=== PATIENT | female | born 1990 | race Caucasian/White ===

== ENCOUNTER 2018-11-22 18:13 | Emergency (ER) | payer BC ==
[2018-11-22 18:26] VITALS: TEMP 98.2
[2018-11-22] MEDS ORDERED: SODIUM CHLORIDE 0.9% 1,000 ML IV STA (18:28)
[2018-11-22 19:06] LABS: Appearance,Urine Clear (Clear); Bilirubin,Urine Negative (Negative); Blood,Urine Negative (Negative); Color,Urine Light Yellow; Glucose,Urine (UA) Negative (Negative); Ketones,Urine Negative (Negative); Leukocyte Esterase,Urine Negative (Negative); Nitrite,Urine Negative (Negative); PH, Urine 6.5 (5.0-8.0); Protein,Urine Negative (Negative); Specific Gravity,Urine 1.005 (1.001-1.035); Urobilinogen,Urine <2.0 mg/dL (<2.0)
[2018-11-22] MEDS ORDERED: MAG HYDROX/AL HYDROX/SIMETH 30 ML, HYOSCYAMINE ELIXIR 10 ML, CIMETIDINE HCL 300 MG, LID... PO STA ×4 (19:12)
[2018-11-22 19:14] LABS: Basophils # (A) 0.1 k/uL (0-0.2); Basophils % (A) 1 %; Eosinophils # (A) 0.3 k/uL (0-0.7); Eosinophils % (A) 2 %; HCT 43.3 % (34.0-46.0); HGB 14.7 gm/dL (11.4-16.0); Lymphocytes # (A) 3.6 k/uL (1.0-4.8); Lymphocytes % (A) 22 %; MCH 30.6 pg (25.0-35.0); Mean Platelet Volume 6.9; Monocytes # (A) 0.8 k/uL (0-1.0); Monocytes % (A) 5 %; Neutrophils % (A) 69 %; Platelet Count 384 k/uL (150-450); RBC 4.81 m/uL (3.80-5.40); RDW 13.4 % (11.5-15.5); WBC 15.9 k/uL (3.8-10.6)
[2018-11-22 19:17] LABS: ALT 27 U/L (9-52); AST 24 U/L (14-36); Albumin 4.6 g/dL (3.5-5.0); Alkaline Phosphatase 91 U/L (38-126); Anion Gap 9 mmol/L; Blood Urea Nitrogen 10 mg/dL (7-17); Calcium 9.8 mg/dL (8.4-10.2); Carbon Dioxide 27 mmol/L (22-30); Chloride 103 mmol/L (98-107); Glucose 81 mg/dL (74-99); Lipase 92 U/L (23-300); Potassium 4.1 mmol/L (3.5-5.1); Sodium 139 mmol/L (137-145); Total Bilirubin 0.6 mg/dL (0.2-1.3); Total Protein 8.2 g/dL (6.3-8.2)
[2018-11-22 19:31] VITALS: RESP 16
--- NOTE | 2018-11-22 19:53 | XR ---
EXAMINATION TYPE: XR KUB DATE OF EXAM: 11/22/2018 7:42 PM CLINICAL HISTORY: Abdominal pain and diarrhea today. TECHNIQUE: Two Upright KUB images of the abdomen are obtained. COMPARISON: None. FINDINGS: Scattered gas is seen in non-distended stomach and small bowel loops. Gas and fecal materia l is seen in non-distended colon. There is no visceromegaly, pneumoperitoneum, or abnormal calcificat ion appreciated. The lung bases are clear and the osseous structures are intact. IMPRESSION: Overall nonobstructive bowel gas pattern.
--- NOTE | 2018-11-22 20:25 | ED ---
General Adult HPI - General Chief complaint: Abdominal Pain Stated complaint: Stomach pain Time Seen by Provider: 11/22/18 18:28 Source: patient, RN notes reviewed, old records reviewed Mode of arrival: ambulatory Limitations: no limitations - History of Present Illness Initial comments: 28-year-old female patient past medical history of gastroesophageal reflux disease presents to ED for approximately 3 weeks of epigastric pain. Patient states that this pain occurs approximately 2-3 times per day and is a stabbing pain. Patient denies any other complaints. Patient denies chest pain shortness of breath. Denies all other complaints. Systemic: Pt denies fatigue, myalgia, fever/chills, rash. Pt denies weakness, night sweats, weight loss. Neuro: Pt denies headache, visual disturbances, syncope or pre-syncope. HEENT: Pt denies ocular discharge or irritation, otalgia, rhinorrhea, pharyngitis or notable lymphadenopathy. Cardiopulmonary: Pt denies chest pain, SOB, heart palpitations, dyspnea on exertion. Abdominal/GI: Pt denies n/v/d. : Pt denies dysuria, burning w/ urination, frequency/urgency. Denies new onset urinary or bowel incontinence. MSK: Pt denies myalgia, loss of strength or function in extremities. Neuro: Pt denies new onset weakness, paresthesias. - Related Data Home Medications Medication Instructions Recorded Confirmed Famotidine [Pepcid] 20 mg PO BID 11/22/18 11/22/18 L.acidoph,Paracasei, B.lactis 2 cap PO DAILY 11/22/18 11/22/18 [Probiotic] Magnesium Hydroxide [Milk of 2,400 mg PO ONCE PRN 11/22/18 11/22/18 Magnesia] Psyllium Husk 100% [Metamucil 6 gm PO DAILY 11/22/18 11/22/18 Packet] Previous Rx's Medication Instructions Recorded Pantoprazole Sodium [Protonix] 20 mg PO Q24HR 21 Days #21 11/22/18 tablet. Allergies Allergy/AdvReac Type Severity Reaction Status Date / Time No Known Allergies Allergy Verified 11/22/18 18:58 Review of Systems ROS Statement: Those systems with pertinent positive or pertinent negative responses have been documented in the HPI. ROS Other: All systems not noted in ROS Statement are negative. Past Medical History Past Medical History: No Reported History History of Any Multi-Drug Resistant Organisms: None Reported Past Surgical History: No Surgical Hx Reported Past Psychological History: No Psychological Hx Reported Smoking Status: Never smoker Past Alcohol Use History: Rare Past Drug Use History: None Reported General Exam - General Exam Comments Initial Comments: Constitutional: NAD, AOX3, Pt has pleasant affect. HEENT: NC/AT, trachea midline, neck supple, no lymphadenopathy. Posterior pharynx non erythematous, without exudates. External ears appear normal, without discharge. Mucous membranes moist. Eyes PERRLA, EOM intact. There is no scleral icterus. No pallor noted. Cardiopulmonary: RRR, no murmurs, rubs or gallops, no JVD noted. Lungs CTAB in anterior and posterior smith. No peripheral edema. Abdominal exam: Abdomen soft and non-distended. Epigastric region mildly tender to palpation. No guarding or rigidity no ecchymoses. No other areas of abdominal tenderness. Mosher sign negative, no tenderness at McBurney's point. Bowel sounds active in LLQ. No hepatosplenomegaly. No ecchymosis Neuro: CN II-XII grossly intact. No nuchal rigidity. MSK: No posterior calf tenderness bilaterally, homans sign negative bilaterally. Posterior tibialis and radial pulse +2 bilaterally. Sensation intact in upper and lower extremities. Full active ROM in upper and lower extremities, 5/5 stregnth. Limitations: no limitations Course Vital Signs 11/22/18 11/22/18 18:22 19:30 Temperature 98.2 F Pulse Rate 71 74 Respiratory 18 16 Rate Blood Pressure 126/84 120/71 O2 Sat by Pulse 99 99 Oximetry Medical Decision Making - Medical Decision Making 28-year-old female patient past medical history of gastroesophageal reflux disease presents to ED for approximately 3 weeks of epigastric pain. Patient states that this pain occurs approximately 2-3 times per day and is a stabbing pain. Patient denies any other complaints. Patient denies chest pain shortness of breath. Denies all other complaints. Patient vital signs stable, afebrile. Laboratory investigations revealed mild leukocytosis of 15.9. Otherwise non- impressive. Urine negative, hCG negative. KUB displayed nonobstructive bowel pattern. Shared decision making, patient declined CT of abdomen and pelvis. Patient will be discharged with GI follow-up. Patient stated on Protonix, will DC Pepcid. Patient will return to ER if condition worsens. Case discussed with Dr. Hart. - Lab Data Result diagrams: 11/22/18 18:50 11/22/18 18:50 Lab Results 11/22/18 11/22/18 11/22/18 Range/Units 18:50 18:50 18:50 WBC 15.9 H (3.8-10.6) k/uL RBC 4.81 (3.80-5.40) m/uL Hgb 14.7 (11.4-16.0) gm/dL Hct 43.3 (34.0-46.0) % MCV 90.0 (80.0-100.0) fL MCH 30.6 (25.0-35.0) pg MCHC 34.0 (31.0-37.0) g/dL RDW 13.4 (11.5-15.5) % Plt Count 384 (150-450) k/uL Neutrophils % 69 % Lymphocytes % 22 % Monocytes % 5 % Eosinophils % 2 % Basophils % 1 % Neutrophils # 11.0 H (1.3-7.7) k/uL Lymphocytes # 3.6 (1.0-4.8) k/uL Monocytes # 0.8 (0-1.0) k/uL Eosinophils # 0.3 (0-0.7) k/uL Basophils # 0.1 (0-0.2) k/uL Sodium 139 (137-145) mmol/L Potassium 4.1 (3.5-5.1) mmol/L Chloride 103 (98-107) mmol/L Carbon Dioxide 27 (22-30) mmol/L Anion Gap 9 mmol/L BUN 10 (7-17) mg/dL Creatinine 0.79 (0.52-1.04) mg/dL Est GFR (CKD-EPI)AfAm >90 (>60 ml/min/1.73 sqM) Est GFR (CKD-EPI)NonAf >90 (>60 ml/min/1.73 sqM) Glucose 81 (74-99) mg/dL Plasma Lactic Acid Yuri 0.6 L (0.7-2.0) mmol/L Calcium 9.8 (8.4-10.2) mg/dL Total Bilirubin 0.6 (0.2-1.3) mg/dL AST 24 (14-36) U/L ALT 27 (9-52) U/L Alkaline Phosphatase 91 (38-126) U/L Total Protein 8.2 (6.3-8.2) g/dL Albumin 4.6 (3.5-5.0) g/dL Lipase 92 (23-300) U/L Urine Color Urine Appearance (Clear) Urine pH (5.0-8.0) Ur Specific [place] (1.001-1.035) Urine Protein (Negative) Urine Glucose (UA) (Negative) Urine Ketones (Negative) Urine Blood (Negative) Urine Nitrite (Negative) Urine Bilirubin (Negative) Urine Urobilinogen (<2.0) mg/dL Ur Leukocyte Esterase (Negative) Urine HCG, Qual (Not Detectd) 11/22/18 11/22/18 Range/Units 18:50 18:50 WBC (3.8-10.6) k/uL RBC (3.80-5.40) m/uL Hgb (11.4-16.0) gm/dL Hct (34.0-46.0) % MCV (80.0-100.0) fL MCH (25.0-35.0) pg MCHC (31.0-37.0) g/dL RDW (11.5-15.5) % Plt Count (150-450) k/uL Neutrophils % % Lymphocytes % % Monocytes % % Eosinophils % % Basophils % % Neutrophils # (1.3-7.7) k/uL Lymphocytes # (1.0-4.8) k/uL Monocytes # (0-1.0) k/uL Eosinophils # (0-0.7) k/uL Basophils # (0-0.2) k/uL Sodium (137-145) mmol/L Potassium (3.5-5.1) mmol/L Chloride (98-107) mmol/L Carbon Dioxide (22-30) mmol/L Anion Gap mmol/L BUN (7-17) mg/dL Creatinine (0.52-1.04) mg/dL Est GFR (CKD-EPI)AfAm (>60 ml/min/1.73 sqM) Est GFR (CKD-EPI)NonAf (>60 ml/min/1.73 sqM) Glucose (74-99) mg/dL Plasma Lactic Acid Yuri (0.7-2.0) mmol/L Calcium (8.4-10.2) mg/dL Total Bilirubin (0.2-1.3) mg/dL AST (14-36) U/L ALT (9-52) U/L Alkaline Phosphatase (38-126) U/L Total Protein (6.3-8.2) g/dL Albumin (3.5-5.0) g/dL Lipase (23-300) U/L Urine Color Light Yellow Urine Appearance Clear (Clear) Urine pH 6.5 (5.0-8.0) Ur Specific [place] 1.005 (1.001-1.035) Urine Protein Negative (Negative) Urine Glucose (UA) Negative (Negative) Urine Ketones Negative (Negative) Urine Blood Negative (Negative) Urine Nitrite Negative (Negative) Urine Bilirubin Negative (Negative) Urine Urobilinogen <2.0 (<2.0) mg/dL Ur Leukocyte Esterase Negative (Negative) Urine HCG, Qual Not Detected (Not Detectd) Disposition Clinical Impression: Gastritis Disposition: HOME SELF-CARE Condition: Stable Instructions (If sedation given, give patient instructions): Gastritis (ED), Diet for Stomach Ulcers and Gastritis (ED) Additional Instructions: Patient to adhere to previously discussed treatment plan and will take medication(s) as directed. Patient to follow up with PCP in 1-2 days. Patient to return to ED if symptoms do not improve. Begin taking Protonix. Stop taking Pepcid. Follow up with GI consult. Follow- up with primary care provider. Return to ER if condition worsens. Prescriptions: Pantoprazole Sodium [Protonix] 20 mg PO Q24HR 21 Days #21 tablet.dr Is patient prescribed a controlled substance at d/c from ED?: No Referrals: Neymar France MD [Primary Care Provider] - 1-2 days Denise Mo MD [STAFF PHYSICIAN] - 1-2 days
[2018-11-22 20:38] VITALS: BP 105/66; PULSE 60
== END 2018-11-22 20:30 | disposition home or self-care (01) ==
LOC: EC 18:13
DX: K29.70 Gastritis, unspecified, without bleeding (principal); D72.829 Elevated white blood cell count, unspecified; K21.9 Gastro-esophageal reflux disease without esophagitis; Z53.29 Procedure and treatment not carried out because of patient's decision for other reasons; Z79.899 Other long term (current) drug therapy
CPT/HCPCS: 36415; 74018; 80053; 81003; 81025; 83605; 83690; 85025; 96360; 99284

== ENCOUNTER → 2019-07-14 | Outpatient (CLI) | payer BC ==
--- NOTE | 2019-07-14 15:18 | US ---
EXAMINATION TYPE: Ultrasound OB <= 14 weeks transvaginal DATE OF EXAM: 07/14/2019 2:45 PM COMPARISON: NONE CLINICAL HISTORY: 29-year-old female O46.91 BLEEDING/SPOTTING. Patient had just to make sure that thi s at office last week where they saw 6 week fetus with no heart tones EXAM PERFORMED: OBTA/OBTV FINDINGS: EXAM MEASUREMENTS: GESTATIONAL AGE / DATING Physician Established: Not yet established Dates by LMP: (10 weeks/1 days) EDC: 02/08/2020 Dates by Current Scan: no heart tones MATERNAL ANATOMY Uterus: 9.3 x 5.6 x 5.4cm Right Ovary: 2.9 x 3.0 x 1.6cm Left Ovary: 3.6 x 2.1 x 2.4cm Post CDS / Adnexa: wnl Presence of free fluid: no Presence of corpus luteal cyst: yes, left ovary = 1.5cm Presence of subchorionic bleed: no GESTATION / SURVEY CRL: 0.4cm (6 weeks/1 days) MSD: 2.8cm (6 weeks/5 days) Yolk Sac (normal less than 6mm): not seen Heart Rate: none Date of LMP: 05/04/2019 Beta HcG (if available): went from 50,000 to 59,000 in 4 days. IMPRESSION: Gestational sac and pole visualized (corresponding to approximately 6 weeks 1 day). The p ole measures only 4 mm. This may be too small in some circumstances to detect heart tones. Rosenthaldany hernández, given the history of ultrasound in the office last week where a 6 week was reportedly visualized and given only a small rise in the beta-hCG value over 4 days, findings are concerning for failed . Appropriate ultrasound follow-up and serial beta hCG is recommended.
== END | disposition home or self-care (01) ==
LOC: RADUSWWP 14:14
PROVIDERS: ATTEND Obstetrics & Gynecology
DX: O46.91 Antepartum hemorrhage, unspecified, first trimester (principal); Z3A.01 Less than 8 weeks gestation of pregnancy
CPT/HCPCS: 76801; 76817

== ENCOUNTER → 2019-07-28 | Outpatient (CLI) | payer BC ==
[2019-07-28 08:47] LABS: Basophils # (A) 0.1 k/uL (0-0.2); Basophils % (A) 1 %; Eosinophils # (A) 0.3 k/uL (0-0.7); Eosinophils % (A) 2 %; HCT 42.6 % (34.0-46.0); HGB 14.2 gm/dL (11.4-16.0); Lymphocytes # (A) 2.5 k/uL (1.0-4.8); Lymphocytes % (A) 20 %; MCH 31.3 pg (25.0-35.0); MCHC 33.5 g/dL (31.0-37.0); MCV 93.5 fL (80.0-100.0); Mean Platelet Volume 7.3; Monocytes # (A) 0.6 k/uL (0-1.0); Monocytes % (A) 5 %; Neutrophils # (A) 9.1 k/uL (1.3-7.7); Neutrophils % (A) 72 %; Platelet Count 329 k/uL (150-450); RBC 4.55 m/uL (3.80-5.40); RDW 12.4 % (11.5-15.5); WBC 12.6 k/uL (3.8-10.6)
== END ==
LOC: LABPAT 08:05
PROVIDERS: ATTEND Obstetrics & Gynecology
DX: Z01.812 Encounter for preprocedural laboratory examination (principal); O02.1 Missed abortion
CPT/HCPCS: 36415; 85025; 86850; 86900; 86901

== ENCOUNTER 2019-07-29 08:33 | Day surgery (SDC) | payer BC ==
[2019-07-18 10:08] VITALS: BMI 39.9
[~2019-07-29 08:33] MED LIST: DEXAMETHASONE SOD PHOSPHATE 10 MG/ML 1 ML VIAL IV ONE; HYDROmorphone 0.5 MG/0.5 ML SYRINGE IVP PRN; LACTATED RINGERS 1,000 ML IV SCH; LIDOCAINE 1% 20 ML VIAL (10MG/ML) FOR IV START INTRADERMA PRN; MIDAZOLAM 2 MG/2 ML VIAL IV PRN; ONDANSETRON 4 MG/2 ML VIAL IVP ONE; Pre Op ABX Message 1 EACH MISC MISCELLANE ONE; SCOPOLAMINE 1.5MG/72HR PATCH TRANSDERM ONE
[2019-07-29 08:55] VITALS: RESP 16
[2019-07-29] MEDS ORDERED: PROPOFOL 10 MG/ML 20 ML VIAL IV ONE (09:15)
[2019-07-29] MEDS ORDERED: SUCCINYLCHOLINE CHLORIDE 100 MG/5 ML SYR IV ONE (09:15)
[2019-07-29] MEDS ORDERED: KETOROLAC 30 MG/ML 1 ML VIAL ONE (09:15)
[2019-07-29] MEDS ORDERED: fentaNYL (PF) 50 MCG/ML 2 ML AMP ONE (09:15)
[2019-07-29] MEDS ORDERED: MIDAZOLAM 2 MG/2 ML VIAL ONE (09:15)
[2019-07-29] MEDS ORDERED: Acetaminophen-Codeine 300-30mg TAB PO PRN ×2 (09:17)
[2019-07-29] MEDS ORDERED: ONDANSETRON 4 MG/2 ML VIAL IVP PRN (09:17)
[2019-07-29] MEDS ORDERED: KETOROLAC 30 MG/ML 1 ML VIAL IVP PRN (09:17)
[2019-07-29] MEDS ORDERED: SIMETHICONE 80 MG CHEWABLE PO PRN (09:17)
[2019-07-29] MEDS ORDERED: METOCLOPRAMIDE 5 MG/ML 2 ML VIAL IVP PRN (09:17)
[2019-07-29] MEDS ORDERED: diphenhydrAMINE 50 MG/ML 1 ML VIAL IVP PRN (09:17)
[2019-07-29] MEDS ORDERED: IBUPROFEN 600 MG TAB PO PRN (09:17)
--- NOTE | 2019-07-29 09:52 | P.OP ---
Date of Procedure: 07/29/19 Preoperative Diagnosis: #1. Seven-week missed Postoperative Diagnosis: Same Procedure(s) Performed: #1. Dilation and aspiration curettage Anesthesia: LANG Surgeon: Aditya Ingram Estimated Blood Loss (ml): 200 IV fluids (ml): 350 Urine output (ml): 40 Pathology: other (Intrauterine contents) Condition: stable Disposition: PACU Operative Findings: Preoperative pelvic examination demonstrated a 7 week midplane mobile normal shaped uterus with normal adnexa bilaterally. Intraoperatively, the uterus sounded to approximately 10-11 cm. A #8 curved aspiration curet was utilized and there was tissue clearly seen passing through the tubing on the first 2 passes after which time no further tissue was noted. The typical gritty texture was noted with a sharp curette. The uterus was appreciably smaller following evacuation of the contents. Description of Procedure: The patient was prepped and draped in usual fashion after general endotracheal anesthesia was administered by the anesthesiologist. A weighted speculum was placed and the anterior lip the cervix grasped with a single-tooth tenaculum. The bladder was draining approximate 40 mL of clear andreas urine. The uterus was sounded to approximately 11 cm as noted above. Serial dilation was carried out to admit a #8 curved aspiration curet which was placed in the fundus of the uterus and suction applied. After adequate suction had been built, thorough and circumferential curettage was carried out from the fundus to the cervix with tissue clearly seen passing through the tubing. A second pass was made with the aspiration curet at which time further tissue was still noted. On a third pass, no further tissue was noted. The aspiration curet was set aside in favor of a medium sharp curet which was placed in the fundus and thorough and circumferential sharp curettage carried out noting no further tissue and the typical gritty texture was encountered throughout. One last pass was made with the aspiration curet at which no further tissue was noted. All instrumentation was removed. There was no ongoing bleeding of any significance from the cervix nor from the tenaculum sites. Estimated blood loss for the entire case was approximately 200 mL. There are no complications. All sponge, instrument, and needle counts were correct. The patient tolerated the procedure well and proceeded to the recovery room in stable condition.
[2019-07-29 10:05] VITALS: TEMP 97.1
[2019-07-29] MEDS: LACTATED RINGERS 1,000 ML IV SCH ×2 (10:42→10:51)
[2019-07-29 11:24] VITALS: BP 111/71; PULSE 71
== END 2019-07-29 12:01 | disposition home or self-care (01) ==
LOC: OR 08:33
PROVIDERS: ATTEND Obstetrics & Gynecology
DX: O02.1 Missed abortion (principal); K21.9 Gastro-esophageal reflux disease without esophagitis; E66.9 Obesity, unspecified; Z68.41 Body mass index [BMI] 40.0-44.9, adult; Z98.818 Other dental procedure status; Z79.899 Other long term (current) drug therapy; Z80.41 Family history of malignant neoplasm of ovary; Z80.8 Family history of malignant neoplasm of other organs or systems; Z82.62 Family history of osteoporosis; Z80.3 Family history of malignant neoplasm of breast
CPT/HCPCS: 86900; 86901; 88305; 86850; 59820; J2250; J1100; J2405; J3010; J1885; J0330; J2704

== ENCOUNTER → 2019-08-26 | Outpatient (CLI) | payer BC | END | disposition home or self-care (01) | LOC: LABWHC1 07:54 | PROVIDERS: ATTEND Obstetrics & Gynecology | DX: O02.1 Missed abortion (principal) | CPT/HCPCS: 36415; 84702 ==

== ENCOUNTER 2020-05-28 10:08 | Inpatient (IN) | payer BC ==
[2020-06-01] MEDS ORDERED: LIDOCAINE 0.5% (PF) 5 MG/ML (50 ML SDV) SQ PRN (06:43)
[2020-06-01] MEDS ORDERED: CARBOPROST TROMETHAMINE 250 MCG/ML 1 ML AMP IM PRN (06:43)
[2020-06-01] MEDS ORDERED: OXYTOCIN 10 UNIT/ML 1 ML VIAL IM PRN (06:43)
[2020-06-01] MEDS ORDERED: METHYLERGONOVINE 0.2 MG/ML 1 ML AMP IM PRN (06:43)
[2020-06-01] MEDS ORDERED: TERBUTALINE 1 MG/ML VIAL SQ PRN (06:43)
[2020-06-01] MEDS ORDERED: OXYTOCIN 30 UNITS/500 ML NS 30 UNIT in SALINE 1 500ML.BAG IV SCH (06:45)
[2020-06-01] MEDS: LACTATED RINGERS 1,000 ML IV SCH ×3 (06:55→16:09)
[2020-06-01 07:01] LABS: Basophils # (A) 0.1 k/uL (0-0.2); Basophils % (A) 1 %; Eosinophils # (A) 0.2 k/uL (0-0.7); Eosinophils % (A) 1 %; HCT 39.9 % (34.0-46.0); HGB 13.6 gm/dL (11.4-16.0); Lymphocytes # (A) 2.2 k/uL (1.0-4.8); Lymphocytes % (A) 15 %; MCH 30.6 pg (25.0-35.0); MCHC 34.1 g/dL (31.0-37.0); MCV 89.7 fL (80.0-100.0); Monocytes # (A) 0.9 k/uL (0-1.0); Monocytes % (A) 6 %; Neutrophils # (A) 11.4 k/uL (1.3-7.7); Neutrophils % (A) 76 %; Platelet Count 268 k/uL (150-450); RBC 4.45 m/uL (3.80-5.40); RDW 14.2 % (11.5-15.5); WBC 14.9 k/uL (3.8-10.6)
[2020-06-01] MEDS ORDERED: BUTORPHANOL 1 MG/ML 1 ML VIAL IV PRN (08:51)
--- NOTE | 2020-06-01 08:56 | P.HPOB ---
History of Present Illness H&P Date: 06/01/20 Chief Complaint: 40-4/7 weeks, LGA, induction The patient is a 30-year-old 2 para 0010 admitted at 40-4/7 weeks as established by seven-week ultrasound. She is admitted for postdates induction of labor with all signs reassuring. Her has been uncomplicated though she was found with a fetus growing at the 90th percentile at 35+ weeks. On labor and delivery, all signs are reassuring with a category 1 heart rate tracing. Group B strep status is negative. Obstetrical history: 2 para 0010 with one early miscarriage requiring D&C. Current statistics are listed in history of present illness. EDC of 05/28/2020 was established by seven-week ultrasound. Laboratory workup demonstrates a blood type of O+ with a negative antibody screen. Rubella status is immune. The remainder of the laboratory workup was within normal limits. Early Glucola as well as second trimester Glucola were within normal limits and group B strep status is negative. Gynecologic history: Unremarkable with no history of any infections to include STDs. Review of Systems Review of systems is confined to history of present illness. Past Medical History Past Medical History: No Reported History Additional Past Medical History / Comment(s): Missed AB History of Any Multi-Drug Resistant Organisms: None Reported Past Surgical History: No Surgical Hx Reported Additional Past Surgical History / Comment(s): [place] teeth removed. Past Anesthesia/Blood Transfusion Reactions: No Reported Reaction Past Psychological History: No Psychological Hx Reported Smoking Status: Former smoker Past Alcohol Use History: Rare Past Drug Use History: None Reported - Past Family History Mother Family Medical History: Respiratory Disorder Additional Family Medical History / Comment(s): sarcoidosis Father Family Medical History: Cancer Additional Family Medical History / Comment(s): Skin Medications and Allergies Home Medications Medication Instructions Recorded Confirmed Type Pantoprazole Sodium [Protonix] 20 mg PO Q24HR 21 Days #21 11/22/18 06/01/20 Rx tablet.dr Rubio No.95/Ferrous Fum/Folic AC 1 each PO DAILY 07/18/19 06/01/20 History [ Multivitamin Tablet] Psyllium Husk (with Sugar) 2 tbsp PO DAILY 06/01/20 06/01/20 History [Metamucil Powder] Allergies Allergy/AdvReac Type Severity Reaction Status Date / Time No Known Allergies Allergy Verified 06/01/20 06:40 Exam Vital Signs Temp Pulse Resp BP Pulse Ox 06/01/20 07:00 97.4 F L 86 16 125/86 98 Intake and Output 05/31/20 06/01/20 06/01/20 22:59 06:59 14:59 Other: # Voids 1 Weight 113.398 kg 113.398 kg In general, this is a well-developed, mild to moderately obese white female in no acute distress. Her heart has a regular rhythm and rate without murmur. Her lungs are clear to auscultation bilaterally in all smith. Her abdomen is gravid, nondistended, has normal active bowel sounds, soft, nontender, and without any palpable masses aside from uterine fundus. Her extremities are without any cyanosis, clubbing, or significant edema and are nontender to palpation bilaterally. Digital cervical examination on straights her cervix to be approximately 2 cm, 60% effaced, with the vertex in presentation at -2 station. Artificial rupture of membranes is carried out demonstrating light meconium-stained fluid. Results Result Diagrams: 06/01/20 06:55 Abnormal Lab Results - Last 24 Hours (Table) 06/01/20 Range/Units 06:55 WBC 14.9 H (3.8-10.6) k/uL Neutrophils # 11.4 H (1.3-7.7) k/uL Assessment and Plan (1) Large for gestational age fetus Current Visit: Yes Status: Acute Code(s): HNT7624 - SNOMED Code(s): 199 211468 (2) Post-dates Current Visit: Yes Status: Acute Code(s): O48.0 - POST-TERM SNOMED Code(s): 80395656 Plan: The patient has been admitted for induction of labor. Pitocin augmentation has been started and she has undergone artificial rupture of membranes. She will have close maternal and surveillance and expectant management will be practiced. She is a good candidate for either IV or epidural analgesia, which ever she may choose.
[2020-06-01] MEDS ORDERED: fentaNYL (PF) 50 MCG/ML 5 ML AMP ONE (14:37)
[2020-06-01] MEDS ORDERED: SODIUM CHLORIDE 0.9% 100 ML BAG ONE (14:37)
[2020-06-01] MEDS ORDERED: ROPIVACAINE 5MG/ML 20ML VIAL ONE (14:37)
[2020-06-01] MEDS ORDERED: ROPIVACAINE 100 MG, fentaNYL (PF) 200 MCG in SODIUM CHLORIDE 0.9% 76 ML EPIDURAL ONE (15:03)
[2020-06-01] MEDS ORDERED: CITRIC ACID-SODIUM CITRATE 15 ML CUP PO ONE (21:14)
[2020-06-01] MEDS ORDERED: KETOROLAC 15 MG/ML 1 ML VIAL ONE (21:26)
[2020-06-01] MEDS ORDERED: OXYTOCIN 10 UNIT/ML 1 ML VIAL ONE (21:26)
[2020-06-01] MEDS ORDERED: LIDOCAINE 2% SYG (PF) 100 MG/5 ML ONE (21:26)
[2020-06-01] MEDS ORDERED: MORPHINE SULFATE (PF) 0.3 MG/0.3 ML SYR ONE (21:26)
[2020-06-01] MEDS ORDERED: fentaNYL (PF) 50 MCG/ML 2 ML AMP ONE (21:26)
[2020-06-01] MEDS ORDERED: ceFAZolin 3 GM in SODIUM CHLORIDE 0.9% 100 ML IVPB ONE (21:30)
[2020-06-01] MEDS ORDERED: ONDANSETRON 4 MG/2 ML VIAL IVP PRN (22:28)
[2020-06-01] MEDS ORDERED: SIMETHICONE 80 MG CHEWABLE PO PRN (22:28)
[2020-06-01] MEDS ORDERED: diphenhydrAMINE 50 MG/ML 1 ML VIAL IVP PRN ×2 (22:28)
[2020-06-01] MEDS ORDERED: ZOLPIDEM 5 MG TAB PO PRN (22:28)
[2020-06-01] MEDS ORDERED: METOCLOPRAMIDE 5 MG/ML 2 ML VIAL IVP PRN (22:28)
[2020-06-01] MEDS ORDERED: ACETAMINOPHEN TAB 325 MG TAB PO PRN (22:28)
[2020-06-01] MEDS ORDERED: LANOLIN CREAM 5 GM TUBE TOPICAL PRN (22:28)
[2020-06-01] MEDS ORDERED: HYDROcodone/APAP 7.5-325MG 1 EACH TAB PO PRN (22:28)
[2020-06-01] MEDS ORDERED: NALOXONE 0.4 MG/ML 1 ML VIAL IV PRN (22:28)
[2020-06-01] MEDS ORDERED: diphenhydrAMINE 50 MG CAP PO PRN (22:28)
[2020-06-01] MEDS ORDERED: diphenhydrAMINE 25 MG CAP PO PRN (22:28)
[2020-06-01] MEDS ORDERED: IBUPROFEN 600 MG TAB PO PRN (22:28)
[2020-06-01] MEDS ORDERED: LACTATED RINGERS 1,000 ML IV SCH (22:30)
[2020-06-01] MEDS ORDERED: OXYTOCIN 20 UNITS/1000 ML NS 1,000 ML IV SCH (22:30)
--- NOTE | 2020-06-01 22:36 | P.OP ---
Date of Procedure: 06/01/20 Preoperative Diagnosis: #1. 40-4/7 weeks, induction of labor #2. Suspected macrosomia #3. Arrest of dilation and descent Postoperative Diagnosis: Same plus #4. right occiput transverse Procedure(s) Performed: #1. Primary low-transverse section Anesthesia: epidural Surgeon: Aditya Ingram Frozen Pie Maker #1: Louise Aldridge Estimated Blood Loss (ml): 600 IV fluids (ml): 800 Urine output (ml): 100 Pathology: none sent Condition: stable Disposition: floor Operative Findings: Preoperatively the patient had been laboring through the active phase of labor since approximately 1:00 in the afternoon. She progressed to approximately 8-9 cm where she remained for approximate 4-5 hours with no descent through the entire day of the presentation/vertex below -2 station with significantly increasing caput and molding. She was counseled regarding options as status was still reassuring with a category 1 tracing and opted to proceed with primary low-transverse section. She is taken the operating room where the procedure was performed in uncomplicated fashion and she was delivered of a viable 8 lbs. 3 oz. baby boy with Apgars of 8 at 1 minute and 9 at 5 minutes delivered in the right occiput transverse position. The placenta was removed manually, intact, and grossly normal with a grossly normal three-vessel cord. The uterus, tubes, and ovaries were entirely normal to inspection. Description of Procedure: The patient was prepped and draped in usual fashion after epidural anesthesia was bolused by the anesthesiologist. A Pfannenstiel incision was made and extended into the abdominal cavity without difficulty. The bladder peritoneum was elevated, incised, and reflected distally. A 2 cm incision was made in the transverse plane of the lower uterine segment to enter the uterus at which time light to moderately meconium-stained fluid was noted again. The head was encountered deep within the pelvis in the right occiput transverse position was delivered up and through the incision where the nose and mouth were thoroughly suctioned. The infant was delivered onto the field where he was immediately vigorous. The cord was doubly clamped, cut, and the passed for resuscitative measures with weight and Apgars as noted above. cord blood was collected. A segment of cord was doubly clamped, cut, and set aside should cord gases become necessary. The placenta was delivered manually and intact as noted above. The uterus was exteriorized and the interior cavity of the uterus swept of any remaining placental or membranous fragments. The margins of the uterine incision were grasped with De La Fuente clamps and the incision closed in 2 layers. First layer was a running locking stitch of 0 chromic catgut followed by a running imbricating stitch of 0 chromic catgut proceeding from margin to margin. There was one small point of bleeding noted in the middle section of the incision was made hemostatic with a single [id number] stitch of 0 chromic catgut. Any small points of bleeding were made hemostatic with the Bovie. The posterior cul-de-sac was then suctioned with a guard and a laparoto my sponge swept any further blood or clot from the cul-de-sac. The uterine and ovarian findings were normal as noted above. Uterus was replaced within the abdominal cavity and the gutters swept of any remaining blood, fluid, or clot. The uterine incision was examined and found to be hemostatic. The parietal peritoneum was loosely reapproximated in the layer of muscles examined and found to be hemostatic. The fascia was closed with 2 running stitches of 0 Vicryl proceeding from the lateral margins to the midpoint. The subcutaneous tissues were irrigated, made hemostatic with the Bovie, and reapproximated with a running stitch of 30 plain catgut. The skin was reapproximated with a running subcuticular stitch of 4-0 Vicryl followed by half-inch Steri-Strips placed with Mastisol. Estimated blood loss for the entire case is approximately 600 mL. There were no complications. All sponge, instrument, and needle counts were correct. The patient tolerated the procedure well proceeded to the recovery room in stable condition. Both mother and infant are resting comfortably in recovery.
--- NOTE | 2020-06-02 06:29 | P.PN ---
Progress Note - Text Progress Note Date: 06/02/20 Postoperative day 1 status post section under epidural anesthesia, and morphine given for postoperative analgesia, patient doing well, there is a anesthesia related competitions. Patient had no headache, vital signs stable Assessment and plan = postop day 1 status post , doing well there is no anesthesia related complication
[2020-06-02] MEDS: KETOROLAC 15 MG/ML 1 ML VIAL IVP PRN ×2 (07:26→15:15)
[2020-06-02 07:35] LABS: Basophils % (A) 0 %; Eosinophils % (A) 0 %; HCT 35.1 % (34.0-46.0); HGB 11.9 gm/dL (11.4-16.0); Lymphocytes # (A) 1.7 k/uL (1.0-4.8); Lymphocytes % (A) 11 %; MCH 30.7 pg (25.0-35.0); MCHC 33.9 g/dL (31.0-37.0); MCV 90.7 fL (80.0-100.0); Mean Platelet Volume 8.3; Monocytes # (A) 0.9 k/uL (0-1.0); Monocytes % (A) 6 %; Neutrophils # (A) 12.8 k/uL (1.3-7.7); Neutrophils % (A) 82 %; Platelet Count 193 k/uL (150-450); RBC 3.87 m/uL (3.80-5.40); RDW 14.4 % (11.5-15.5); WBC 15.6 k/uL (3.8-10.6)
--- NOTE | 2020-06-02 08:28 | P.PNOBGPC ---
Subjective - Subjective Patient reports: Reports appetite normal, Reports voiding normally, Reports pain well controlled, Reports ambulating normally : doing well, nursing well Objective - Vital Signs Latest vital signs: Vital Signs Temp Pulse Resp BP Pulse Ox 06/02/20 04:00 98.7 F 85 16 124/73 99 06/02/20 00:30 99.2 F 90 18 117/60 99 06/02/20 00:00 99.0 F 92 18 112/60 99 06/01/20 23:30 99.1 F 102 H 16 119/61 99 06/01/20 23:15 99.0 F 106 H 18 111/58 99 06/01/20 23:00 108 H 16 116/56 99 06/01/20 22:45 96 16 114/62 99 06/01/20 22:30 98.6 F 97 18 125/73 99 Intake and Output 06/01/20 06/02/20 06/02/20 22:59 06:59 14:59 Intake Total 400 725 Output Total 100 400 Balance 300 325 Intake: IV 400 725 Output: Urine 100 400 Other: Voiding Method Indwelling Catheter - Exam Extremities: Present: normal Abdomen: Present: normal appearance, soft. Absent: distention, tenderness Incision: Present: normal, dry, intact Uterus: Present: normal, firm (The uterine fundus as tonic and appropriately tender just below the umbilicus.) - Labs Labs: Abnormal Lab Results - Last 24 Hours (Table) 06/02/20 Range/Units 06:57 WBC 15.6 H (3.8-10.6) k/uL Neutrophils # 12.8 H (1.3-7.7) k/uL Assessment and Plan (1) Large for gestational age fetus Current Visit: Yes Status: Acute Code(s): UXZ5214 - SNOMED Code(s): 901336860 (2) Post-dates Current Visit: Yes Status: Acute Code(s): O48.0 - POST-TERM SNOMED Code(s): 08873393 (3) S/P section Current Visit: Yes Status: Acute Code(s): Z98.891 - HISTORY OF UTERINE SCAR FROM PREVIOUS SURGERY SNOMED Code(s): 364483786 Plan: Continue routine postoperative care. I have strongly encouraged patient and the hallways at least 4 times daily. She is tolerating regular diet at this point and I would anticipate possible/probable discharge home tomorrow pending the complications.
[2020-06-02] MEDS: SENNOSIDES-DOCUSATE SODIUM 1 EACH TAB PO SCH ×2 (08:37→20:42)
[2020-06-03] MEDS: HYDROcodone/APAP 5-325MG 1 EACH TAB PO PRN ×3 (01:36→13:54)
[2020-06-03] MEDS: SENNOSIDES-DOCUSATE SODIUM 1 EACH TAB PO SCH (08:04)
--- NOTE | 2020-06-03 08:44 | P.DS ---
Providers Date of admission: 06/01/20 06:10 Expected date of discharge: 06/03/20 Attending physician: Aditya Ingram Primary care physician: Stated None - Discharge Diagnosis(es) (1) Large for gestational age fetus Current Visit: Yes Status: Acute (2) Post-dates Current Visit: Yes Status: Acute (3) S/P section Current Visit: Yes Status: Acute Hospital Course: The patient is a 30-year-old 2 para 0010 admitted at 40-4/7 weeks by good dating parameters. She is admitted for postdates induction with all signs reassuring. Her was uncomplicated though she did have a suspected large for gestational age fetus with growth at the 90th percentile at 35 weeks. Group B strep status is negative. On labor and delivery, she had Pitocin started and underwent artificial rupture of membranes. She made slow progress through the day and had an epidural catheter placed for analgesia. She ultimately progressed to approximately 8-9 synovators where she remained for approximately 4-6 hours with no descent throughout the entire day of the head. The diagnoses arrest of dilation and descent was made in the patient was taken the operating room where she was delivered by primary low-transverse section of a viable 8 lbs. 3 oz. baby boy with Apgars of 8 at 1 minute and 9 at 5 minutes. Her postoperative course has been unremarkable with vital signs being stable and her temperature was afebrile throughout. She was deemed stable for discharge on and postoperative day #2 and was discharged home to follow-up in the office in 2 weeks for an incision check and 6 weeks routinely. Discharge instructions included calling for any significantly increased bleeding or foul-smelling lochia, significantly increased fever or abdominal pain, perineal complaints, breast complaints, incisional complaints, or anything else that concerned her. She was additionally instructed to have nothing in the vagina for at least 6 weeks time to include intercourse and to abstain from any heavy lifting over the same period of time. She was lastly instructed to do no driving over the next 2 weeks until off of all pain medications, whichever came first. She understood her instructions and agrees to follow up as noted above. Discharge medications included continued vitamins as she has opted to breast-feed as well as [id number] analgesic pain medications. She was provided a prescription for Crawford 5/325 mg, 1-2 by mouth every 6 hours when necessary pain, #20 dispensed with no refills. Discharge hemoglobin and hematocrit were 11.9 and 35.1 respectively. Maternal blood type is O+ and rubella status is immune. Procedures: #1. Pitocin induction #2. Artificial rupture of membrane #3. Epidural analgesia for. Primary low-transverse section Patient Condition at Discharge: Stable Plan - Discharge Summary New Discharge Prescriptions: No Action Pantoprazole Sodium [Protonix] 20 mg PO Q24HR 21 Days #21 tablet. Pnv No.95/Ferrous Fum/Folic AC [ Multivitamin Tablet] 1 each PO DAILY Psyllium Husk (with Sugar) [Metamucil Powder] 2 tbsp PO DAILY Discharge Medication List Pantoprazole Sodium [Protonix] 20 mg PO Q24HR 21 Days #21 tablet. 11/22/18 [Rx] Pnv No.95/Ferrous Fum/Folic AC [ Multivitamin Tablet] 1 each PO DAILY 07/18/19 [History] Psyllium Husk (with Sugar) [Metamucil Powder] 2 tbsp PO DAILY 06/01/20 [History] Follow up Appointment(s)/Referral(s): Aditya Ingram MD [STAFF PHYSICIAN] - 2 Weeks Discharge Disposition: HOME SELF-CARE
[2020-06-03 16:35] VITALS: BP 108/60; PULSE 81; RESP 16; TEMP 98.2
== END 2020-06-03 16:35 | disposition home or self-care (01) | DRG 788 ==
LOC: 4FBP 06-01 06:10
PROVIDERS: ADMIT Obstetrics & Gynecology; ATTEND Obstetrics & Gynecology
PROC: 3E033VJ Introduction of Other Hormone into Peripheral Vein, Percutaneous Approach (ICD-10-PCS; principal; 2020-06-01 22:09)
PROC: 00HU33Z Insertion of Infusion Device into Spinal Canal, Percutaneous Approach (ICD-10-PCS; principal; 2020-06-01 22:09)
PROC: 3E0R3BZ Introduction of Anesthetic Agent into Spinal Canal, Percutaneous Approach (ICD-10-PCS; principal; 2020-06-01 22:09)
PROC: 10D00Z1 Extraction of Products of Conception, Low, Open Approach (ICD-10-PCS; principal; 2020-06-01 22:09)
PROC: 10907ZC Drainage of Amniotic Fluid, Therapeutic from Products of Conception, Via Natural or Artificial Opening (ICD-10-PCS; principal; 2020-06-01 22:09)
DX: O48.0 Post-term pregnancy (principal); O36.63X0 Maternal care for excessive fetal growth, third trimester, not applicable or unspecified; O62.1 Secondary uterine inertia; O77.0 Labor and delivery complicated by meconium in amniotic fluid; O99.62 Diseases of the digestive system complicating childbirth; K21.9 Gastro-esophageal reflux disease without esophagitis; Z37.0 Single live birth; Z3A.40 40 weeks gestation of pregnancy; Z87.891 Personal history of nicotine dependence; Z79.899 Other long term (current) drug therapy; Z84.89 Family history of other specified conditions; Z80.8 Family history of malignant neoplasm of other organs or systems
CPT/HCPCS: 85025; 86850; 86900; 86901

== ENCOUNTER 2020-12-26 13:01 | Emergency (ER) | payer BC ==
[2020-12-26 13:07] VITALS: RESP 20; TEMP 98.6
[2020-12-26] MEDS ORDERED: KETOROLAC 15 MG/ML 1 ML VIAL IM STA (14:05)
[2020-12-26] MEDS ORDERED: ORPHENADRINE 30 MG/ML 2 ML VIAL IM STA (14:05)
--- NOTE | 2020-12-26 14:27 | ED ---
Back Pain HPI - General Chief Complaint: Back Pain/Injury Stated Complaint: back pain Time Seen by Provider: 12/26/20 13:51 Source: patient, RN notes reviewed, old records reviewed Limitations: no limitations - History of Present Illness Initial Comments: This patient's a 30-year-old female who presents with onset of lower back pain and spasming. Patient reports that she's been having intermittent pain since May after her . Patient reports that today she was taking care of her child to bend over to pick him up she felt her back tighten up. She reports with any movement it became more severe. 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 She denies any significant numbness or tingling down either leg. She denies any saddle anesthesia. She denies any weight loss or fevers. She states that she did take Motrin a couple days ago. - Related Data Home Medications Medication Instructions Recorded Confirmed Psyllium Husk (with Sugar) 2 tbsp PO DAILY 06/01/20 12/26/20 [Metamucil Powder] Pantoprazole Sodium [Protonix] 20 mg PO DAILY 12/26/20 12/26/20 Previous Rx's Medication Instructions Recorded Cyclobenzaprine [Flexeril] 10 mg PO TID #15 tab 12/26/20 Cyclobenzaprine [Flexeril] 10 mg PO TID #15 tab 12/26/20 Ibuprofen 600 mg PO Q6H #30 tab 12/26/20 Ibuprofen [Motrin] 600 mg PO Q8HR PRN #30 tab 12/26/20 dexAMETHasone [Dexamethasone] 0.75 mg PO DAILY #12 tab 12/26/20 dexAMETHasone [Dexamethasone] 0.75 mg PO DAILY #12 tab 12/26/20 Allergies Allergy/AdvReac Type Severity Reaction Status Date / Time No Known Allergies Allergy Verified 12/26/20 14:15 Review of Systems ROS Statement: Those systems with pertinent positive or pertinent negative responses have been documented in the HPI. ROS Other: All systems not noted in ROS Statement are negative. Past Medical History Past Medical History: No Reported History Additional Past Medical History / Comment(s): Missed AB History of Any Multi-Drug Resistant Organisms: None Reported Past Surgical History: Cardiac Valve Replacement Additional Past Surgical History / Comment(s): [place] teeth removed. Past Anesthesia/Blood Transfusion Reactions: No Reported Reaction Past Psychological History: No Psychological Hx Reported Smoking Status: Former smoker Past Alcohol Use History: Rare Past Drug Use History: None Reported - Past Family History Mother Family Medical History: Respiratory Disorder Additional Family Medical History / Comment(s): sarcoidosis Father Family Medical History: Cancer Additional Family Medical History / Comment(s): Skin General Exam Limitations: no limitations General appearance: alert, in no apparent distress Head exam: Present: atraumatic, normocephalic, normal inspection Eye exam: Present: normal appearance, PERRL, EOMI. Absent: scleral icterus, conjunctival injection, periorbital swelling ENT exam: Present: normal exam, mucous membranes moist Neck exam: Present: normal inspection. Absent: tenderness, meningismus, lymphadenopathy Respiratory exam: Present: normal lung sounds bilaterally. Absent: respiratory distress, wheezes, rales, rhonchi, stridor Cardiovascular Exam: Present: regular rate, normal rhythm, normal heart sounds. Absent: systolic murmur, diastolic murmur, rubs, gallop, clicks GI/Abdominal exam: Present: soft, normal bowel sounds. Absent: distended, tenderness, guarding, rebound, rigid Extremities exam: Present: normal inspection, full ROM, normal capillary refill. Absent: tenderness, pedal edema, joint swelling, calf tenderness Back exam: Present: normal inspection, full ROM, tenderness (Patient has some lower spinal tenderness spasming to palpation on right and left paraspinal muscle.) Neurological exam: Present: alert, oriented X3, CN II-XII intact Psychiatric exam: Present: normal affect, normal mood Skin exam: Present: warm, dry, intact, normal color. Absent: rash Course Vital Signs 12/26/20 12/26/20 13:05 15:40 Temperature 98.6 F Pulse Rate 62 60 Respiratory 20 20 Rate Blood Pressure 147/87 111/70 O2 Sat by Pulse 99 99 Oximetry Medical Decision Making - Medical Decision Making 30 year old female with months intermittent back pain, spasming, and worse with movement for the past day. She had normal lumbar spine xray. Denies red flag symptoms and saddle anesthesia. She was given IM norflex adn toradol with improvement. Advisedthe patient to follow up with PCP and orthopedic back specialist if symptoms persist. Will dC with steroids, muscle relaxer and antii nflammatory medication. Discussed return parameters. - Lab Data Lab Results 12/26/20 Range/Units 14:44 Urine HCG, Qual Not Detected (Not Detectd) - Radiology Data Radiology results: report reviewed Normal lumbar spine xray. Disposition Clinical Impression: Back spasm Disposition: HOME SELF-CARE Condition: Good Instructions (If sedation given, give patient instructions): Acute Low Back Pain (ED) Additional Instructions: Please use medication as discussed. Please follow up with family doctor if symptoms have not improved over the next two days. Please return to the emergency room if your symptoms increase or worsen or for any other concerns. Prescriptions: dexAMETHasone [Dexamethasone] 0.75 mg PO DAILY #12 tab dexAMETHasone [Dexamethasone] 0.75 mg PO DAILY #12 tab Cyclobenzaprine [Flexeril] 10 mg PO TID #15 tab Cyclobenzaprine [Flexeril] 10 mg PO TID #15 tab Ibuprofen 600 mg PO Q6H #30 tab Ibuprofen [Motrin] 600 mg PO Q8HR PRN #30 tab PRN Reason: Pain Is patient prescribed a controlled substance at d/c from ED?: No Referrals: Neymar France MD [Primary Care Provider] - 1-2 days Time of Disposition: 16:06
[2020-12-26 15:41] VITALS: BP 111/70; PULSE 60
--- NOTE | 2020-12-26 15:45 | XR ---
EXAMINATION TYPE: XR lumbar spine 2 or 3V DATE OF EXAM: 12/26/2020 COMPARISON: NONE HISTORY: Back pain TECHNIQUE: 3 views FINDINGS: Lumbar vertebra have normal spacing and alignment. Posterior elements are intact. Sacroilia c joints are normal. IMPRESSION: Normal lumbar spine.
[2020-12-26] MEDS ORDERED: traMADol 50 MG STARTER PACK 3 TAB BTL PO STA (16:09)
[2020-12-26] MEDS ORDERED: dexAMETHasone 4 MG TAB PO STA (16:20)
[2020-12-26] MEDS ORDERED: CYCLOBENZAPRINE 10MG STARTER 3 TAB BTL PO STA (16:20)
== END 2020-12-26 16:32 | disposition home or self-care (01) ==
LOC: EC 13:01
DX: M62.830 Muscle spasm of back (principal); Z79.891 Long term (current) use of opiate analgesic
CPT/HCPCS: 96372; 99284; 81025; 72100; 99283; J8540; J2360; J1885

== ENCOUNTER 2022-01-13 18:55 | Outpatient (CLI) | payer BC ==
[2022-01-13] MEDS ORDERED: LACTATED RINGERS 1,000 ML IV SCH (19:45)
[2022-01-13 22:42] LABS: Appearance,Urine Clear (Clear); Bilirubin,Urine Negative (Negative); Blood,Urine Negative (Negative); Color,Urine Colorless; Glucose,Urine (UA) Negative (Negative); Ketones,Urine Trace (Negative); Leukocyte Esterase,Urine Negative (Negative); Nitrite,Urine Negative (Negative); Protein,Urine Negative (Negative); Specific Gravity,Urine 1.002 (1.001-1.035); Urobilinogen,Urine <2.0 mg/dL (<2.0)
[2022-01-13 23:59] VITALS: BP 125/60; PULSE 88; RESP 16; TEMP 97.8
--- NOTE | 2022-01-15 15:07 | P.MSEPDOC ---
Presenting Problems - Arrival Data Date of Arrival on Unit: 01/13/22 Time of Arrival on Unit: 18:55 Mode of Transport: Ambulatory - Complaint OB-Reason for Admission/Chief Complaint: Pain Comment: Patient arrives to triage with complaints of abdominal cramping and pressure. behind her eyes.Patient rates pain a 2/10 Medical History - Information : 3 Para: 1 Term: 1 : 0 Abortions: Spontaneous or Elective: 1 Number of Living Children: 1 - Gestational Age Gestational Age by ARIANNE (wks/days): 29 Weeks and 2 Days Review of Systems - Review of Systems Constitutional: No problems Breast: No problems ENT: No problems Cardiovascular: No problems Respiratory: No problems Gastrointestinal: No problems Genitourinary: No problems Musculoskeletal: No problems Neurological: No problems Skin: No problems Vital Signs - Temperature Temperature: 97.8 F Temperature Source: Oral - Pulse Right Brachial Pulse Rate: 88 Pulse Assessment Method: Automatic Cuff - Respirations Respiratory Rate: 16 Oxygen Delivery Method: Room Air O2 Sat by Pulse Oximetry: 88 - Blood Pressure Right Arm Blood Pressure: 125/60 Blood Pressure Mean: 81 Blood Pressure Source: Automatic Cuff Medical Screen Scoring - Assessment - Baby A Baseline FHR: 135 Heart Rate - NICHD Category: Category I (Normal) NST: Reactive Physician Notification - Physician Notified Physician Notified Date: 01/12/22 Physician Notified Time: 20:52 Physician: Kiesha Alfaro S - Notification Comment Comment: RN reported to Dr. Alfaro that patients cervix was closed and thick. Patient. states she has not felt more cramping since being here. FFN was sent. IV fluid bolus. infused. Dr. Alfaro states patient may be discharged and instructed to follow up with. regular OB. Dr. Alfaro also states patient may take a claritin for eye pressure. Patient. updated on plan of care. Maternal Triage Index - Maternal Triage Index Presenting for scheduled procedure w/no complaint: No - Stat/Priority 1 Stat Priority 1: No - Urgent/Priority 2 Urgent Priority 2: No - Prompt/Priority 3 Prompt Priority 3: No - Non-Urgent/Priority 4 Non-Urgent Priority 4: Yes Criteria Met for Priority 4: Common discomforts of Disposition - Disposition OB Disposition: Discharge to home Discharge Date: 01/13/22 Discharge Time: 21:00 I agree with the RN Medical Screening Exam: Yes Case reviewed; plan agreed upon as documented in EMR&OBIX.: Yes Diagnosis: RELATED CONDITIONS, UNSPECIFIED, THIRD TRIMESTER
== END 2022-01-13 21:00 | disposition home or self-care (01) ==
LOC: FBPOP 18:55
PROVIDERS: ATTEND Obstetrics & Gynecology Obstetrics
DX: O26.893 Other specified pregnancy related conditions, third trimester (principal); R10.9 Unspecified abdominal pain; Z3A.29 29 weeks gestation of pregnancy
CPT/HCPCS: 36415; 59025; 81003; 82731; 96360; 96361; 99214

== ENCOUNTER 2022-03-22 09:41 | Inpatient (IN) | payer BC ==
[2022-03-22] MEDS ORDERED: LACTATED RINGERS 1,000 ML IV ONE (10:25)
[2022-03-22] MEDS ORDERED: CITRIC ACID-SODIUM CITRATE 15 ML CUP PO ONE (10:25)
[2022-03-22] MEDS ORDERED: LACTATED RINGERS 1,000 ML IV SCH (10:30)
[2022-03-22 10:41] LABS: Basophils # (A) 0.1 k/uL (0-0.2); Basophils % (A) 1 %; Eosinophils # (A) 0.1 k/uL (0-0.7); Eosinophils % (A) 1 %; HCT 42.1 % (34.0-46.0); HGB 13.6 gm/dL (11.4-16.0); Lymphocytes # (A) 2.2 k/uL (1.0-4.8); Lymphocytes % (A) 16 %; MCH 30.5 pg (25.0-35.0); MCHC 32.4 g/dL (31.0-37.0); MCV 94.4 fL (80.0-100.0); Mean Platelet Volume 8.9; Monocytes # (A) 0.7 k/uL (0-1.0); Monocytes % (A) 5 %; Neutrophils # (A) 10.5 k/uL (1.3-7.7); Neutrophils % (A) 77 %; Platelet Count 232 k/uL (150-450); RBC 4.47 m/uL (3.80-5.40); RDW 14.1 % (11.5-15.5); WBC 13.7 k/uL (3.8-10.6)
[2022-03-22] MEDS ORDERED: OXYTOCIN 30 UNITS/500 ML NS BAG IV ONE (12:14)
[2022-03-22] MEDS ORDERED: MORPHINE SULFATE (PF) 0.3 MG/0.3 ML SYR ONE (12:14)
[2022-03-22] MEDS ORDERED: ONDANSETRON 4 MG/2 ML VIAL ONE (12:14)
[2022-03-22] MEDS ORDERED: PHENYLEPHRINE-0.9% NACL SYG 1,000 MCG/10 ML SYRINGE ONE (12:14)
--- NOTE | 2022-03-22 13:19 | P.OP ---
Date of Procedure: 03/22/22 Preoperative Diagnosis: IUP at 39 weeks, history of 1, desires repeat Postoperative Diagnosis: same Procedure(s) Performed: repeat section Anesthesia: spinal Surgeon: Kiesha Alfaro Admissions Supervisor #1: Racquel Parks Estimated Blood Loss (ml): 586 IV fluids (ml): 1,500 Urine output (ml): 75 Condition: stable Disposition: observation Indications for Procedure: patient request for repeat section Operative Findings: dense bladder adhesions to the midportion of the uterus. These were taken down sharply yellow urine noted in the Stone catheter throughout the procedure. Normal uterus tubes and ovaries were appreciated, viable female infant delivered at 1243, weight of 7 lbs. 10 oz., Apgars of 9 and 9 at one and 5 minutes respectively. Description of Procedure: patient was taken to the operating suite where spinal anesthesia was found be adequate by the anesthesia department. She is then prepped and draped in the normal sterile fashion in the dorsal supine position. A Pfannenstiel skin incision was made with the scalpel and carried through the underlying layer of fascia. The fascia is incised in the midline and extended laterally. The superior aspect of the fascial incision was then grasped ana clamps, elevated and underlying rectus muscle was dissected off sharply. The inferior aspect of the fascial incision was then grasped ana clamps, elevated and underlying rectus muscles dissected off sharply once again. Dense midline scarring was appreciated but the rectus muscles were separate in the midline the peritoneum was identified and entered sharply. This incision was extended superiorly and inferiorly with good visualization the bladder. The bladder was noted to be densely adherent to the anterior portion of the uterus to the mid portion of the uterus. These were taken down sharply, Stone catheter was noted to be draining clear yellow urine within the catheter tubing. The bladder blade was then reinserted. The scalpel is then used to make a hysterotomy incision where copious clear fluid was appreciated. The was encountered in a vertex presentation and delivered in the usual fashion. A spontaneous cry was noted at , the umbilical cord was doubly clamped and cut and cord blood was taken. The was handed off to awaiting RN. The placenta was delivered manually and the uterus cleared of all clots and debris. The uterus was delivered from the abdomen and once again cleared of all clots and debris. The uterine incision was inspected and closed with 0 Vicryl in a running locked fashion, a second imbricating suture was performed. Hemostasis was appreciated. The uterus then returned to the abdomen and the gutters were cleared of all clots and debris. The hysterotomy incision was inspected found to be hemostatic. The bladder was inspected and found to be intact. Once again the Stone catheter was draining clear yellow urine throughout. The rectus muscles were inspected and any points of bleeding were made hemostatic with the Bovie. The fascia was then closed 0 Vicryl in a runninger lateral edge the midline. The subcu taste tissue was then irrigated found to be hemostatic and closed with 3-0 Vicryl in a running fashion. The skin was closed with 4-0 Vicryl in a subcuticular fashion. Steri-Strips and sterile dressings were applied. All counts were noted correct 2 at the end of the procedure. Patient and infant tolerated procedure well and are taken the recovery room awake in stable condition.
--- NOTE | 2022-03-22 13:22 | P.HPOB ---
History of Present Illness H&P Date: 03/22/22 Chief Complaint: IUP at 39 and 0, history of 1 ricki lopez 32-year-old 011 at 39-0/7 weeks, estimated due date of 03/29. Patient presents for repeat section. Patient had a prior for arrest of descent and dilation. Patient has been receiving routine care which has been essentially uncomplicated. Patient did have a COVID-19 infection on November 2021. Patient notes good movement denies contractions or vaginal bleeding. On bloodwork this patient has a blood type of O+, rubella status immune, B surface antigen negative, HIV negative, group beta strep culture negative, RPR is nonreactive. Review of Systems Constitutional: Denies chills, Denies fatigue, Denies fever Ears, nose, mouth and throat: Denies headache Cardiovascular: Reports leg edema Respiratory: Denies dyspnea Gastrointestinal: Denies constipation, Denies diarrhea, Denies nausea, Denies vomiting Genitourinary: Reports Past Medical History Past Medical History: No Reported History Additional Past Medical History / Comment(s): Missed AB History of Any Multi-Drug Resistant Organisms: None Reported Past Surgical History: Cardiac Valve Replacement Additional Past Surgical History / Comment(s): [place] teeth removed. Past Anesthesia/Blood Transfusion Reactions: No Reported Reaction Past Psychological History: No Psychological Hx Reported Smoking Status: Never smoker Past Alcohol Use History: Rare Past Drug Use History: None Reported - Past Family History Mother Family Medical History: Respiratory Disorder Additional Family Medical History / Comment(s): sarcoidosis Father Family Medical History: Cancer Additional Family Medical History / Comment(s): Skin Medications and Allergies Home Medications Medication Instructions Recorded Confirmed Type Pantoprazole Sodium [Protonix] 40 mg PO DAILY 12/26/20 03/22/22 History Albuterol Inhaler [Ventolin Hfa 90 mcg INHALATION DAILY 01/13/22 03/22/22 History Inhaler] Aspirin 1 tab PO DAILY 03/22/22 03/22/22 History Vit No.179/Iron/Folic 1 tab PO DAILY 03/22/22 03/22/22 History [ Tablet] Allergies Allergy/AdvReac Type Severity Reaction Status Date / Time No Known Allergies Allergy Verified 03/22/22 10:20 Exam Osteopathic Statement: *. No significant issues noted on an osteopathic structural exam other than those noted in the History and Physical/Consult. Intake and Output 03/21/22 03/22/22 03/22/22 22:59 06:59 14:59 Other: Weight 107.501 kg targeted physical exam is performed in this date, in general this is a well- nourished well-developed female in no acute distress, breathing is noted to be nonlabored, heart has a regular rate and rhythm, abdomen is gravid and appropriate for gestational age, heart tones noted be category 1 and she is not irena, vaginal exam is deferred Results Result Diagrams: 03/22/22 10:05 Abnormal Lab Results - Last 24 Hours (Table) 03/22/22 Range/Units 10:05 WBC 13.7 H (3.8-10.6) k/uL Neutrophils # 10.5 H (1.3-7.7) k/uL Assessment and Plan (1) Term Current Visit: Yes Status: Acute Code(s): Z34.90 - ENCNTR FOR SUPRVSN OF NORMAL , UNSP, UNSP TRIMESTER SNOMED Code(s): 42023429 (2) H/O section Current Visit: Yes Status: Acute Code(s): Z98.891 - HISTORY OF UTERINE SCAR FROM PREVIOUS SURGERY SNOMED Code(s): 349940207 Plan: 32-year-old at 39 weeks of gestation presents for repeat section. Patient had a prior secondary to arrest of descent and dilation. Patient wishes repeat section. We'll proceed with repeat section
[2022-03-22] MEDS ORDERED: METOCLOPRAMIDE 5 MG/ML 2 ML VIAL IVP PRN (13:23)
[2022-03-22] MEDS ORDERED: NALOXONE 0.4 MG/ML 1 ML VIAL IV PRN (13:23)
[2022-03-22] MEDS ORDERED: diphenhydrAMINE 50 MG CAP PO PRN (13:23)
[2022-03-22] MEDS ORDERED: ZOLPIDEM 5 MG TAB PO PRN (13:23)
[2022-03-22] MEDS ORDERED: IBUPROFEN IV 800 MG in SODIUM CHLORIDE 0.9% 250 ML IV PRN (13:23)
[2022-03-22] MEDS ORDERED: ONDANSETRON 4 MG/2 ML VIAL IVP PRN (13:23)
[2022-03-22] MEDS ORDERED: SIMETHICONE 80 MG CHEWABLE PO PRN (13:23)
[2022-03-22] MEDS ORDERED: OXYTOCIN 30 UNITS/500 ML NS 30 UNIT in SALINE 1 500ML.BAG IV SCH (13:23)
[2022-03-22] MEDS ORDERED: diphenhydrAMINE 25 MG CAP PO PRN (13:23)
[2022-03-22] MEDS ORDERED: diphenhydrAMINE 50 MG/ML 1 ML VIAL IVP PRN ×2 (13:23)
[2022-03-22] MEDS: LACTATED RINGERS 1,000 ML IV SCH (14:58)
[2022-03-22] MEDS ORDERED: HYDROmorphone 0.5 MG/0.5 ML SYRINGE IVP PRN (15:39)
[2022-03-22] MEDS: ACETAMINOPHEN TAB 500 MG TAB PO SCH ×2 (15:48→22:17)
[2022-03-22] MEDS: ACETAMINOPHEN IV (For NPO) 1,000 MG in EMPTY BAG 1 BAG IVPB SCH (17:04)
[2022-03-22] MEDS: IBUPROFEN 600 MG TAB PO SCH (18:25)
[2022-03-22] MEDS: SENNOSIDES-DOCUSATE SODIUM 1 EACH TAB PO SCH (20:18)
[2022-03-23] MEDS: LACTATED RINGERS 1,000 ML IV SCH ×2 (01:38→09:03)
[2022-03-23] MEDS ORDERED: ACETAMINOPHEN IV (For NPO) 1,000 MG in EMPTY BAG 1 BAG IVPB SCH (02:00)
[2022-03-23 03:33] LABS: Basophils % (A) 0 %; Eosinophils # (A) 0.1 k/uL (0-0.7); Eosinophils % (A) 1 %; HCT 37.2 % (34.0-46.0); HGB 12.3 gm/dL (11.4-16.0); Lymphocytes # (A) 1.6 k/uL (1.0-4.8); Lymphocytes % (A) 15 %; MCH 31.8 pg (25.0-35.0); MCHC 33.1 g/dL (31.0-37.0); MCV 95.8 fL (80.0-100.0); Mean Platelet Volume 8.9; Monocytes # (A) 0.5 k/uL (0-1.0); Monocytes % (A) 4 %; Neutrophils # (A) 8.1 k/uL (1.3-7.7); Neutrophils % (A) 78 %; Platelet Count 169 k/uL (150-450); RBC 3.88 m/uL (3.80-5.40); RDW 14.5 % (11.5-15.5); WBC 10.4 k/uL (3.8-10.6)
[2022-03-23] MEDS: IBUPROFEN 600 MG TAB PO SCH ×4 (04:44→18:00)
[2022-03-23] MEDS: ACETAMINOPHEN IV (For NPO) 1,000 MG in EMPTY BAG 1 BAG IVPB SCH (05:33)
--- NOTE | 2022-03-23 06:54 | P.PN ---
Progress Note - Text Progress Note Date: 03/23/22 Postop day 1 from under spinal anesthesia with intrathecal morphine given for postop pain management. Patient is doing well. Pain is well controlled. On visual analog scale 2/10 Mild itching present No nausea or vomiting reported. No Headache or weakness and numbness in the legs. No complications from spinal anesthesia.
[2022-03-23] MEDS: ACETAMINOPHEN TAB 500 MG TAB PO SCH ×4 (07:51→21:56)
[2022-03-23] MEDS: SENNOSIDES-DOCUSATE SODIUM 1 EACH TAB PO SCH ×2 (07:53→22:23)
--- NOTE | 2022-03-23 08:29 | P.PNOBGPC ---
Subjective - Subjective Principal diagnosis: postop day 1 repeat section Interval history: patient is doing well postoperatively. She is ambulating and voiding without difficulty. She is tolerating a regular diet without nausea or vomiting. She states her pain is well-controlled. Lochia is minimal. Patient reports: Reports appetite normal, Reports voiding normally, Reports pain well controlled, Reports ambulating normally [place]: doing well Objective - Vital Signs Latest vital signs: Vital Signs Temp Pulse Resp BP Pulse Ox 03/23/22 04:00 97.9 F 74 19 136/90 03/23/22 00:00 98.6 F 76 16 129/72 97 03/22/22 20:00 97.8 F 71 16 117/73 98 03/22/22 15:15 63 16 113/64 98 03/22/22 14:45 60 16 121/82 96 03/22/22 14:15 60 16 115/72 94 L 03/22/22 14:00 58 L 16 102/61 97 03/22/22 13:45 63 16 103/53 98 03/22/22 13:30 66 16 89/52 98 03/22/22 13:15 97.5 F L 66 16 99/55 96 Intake and Output 03/22/22 03/23/22 03/23/22 22:59 06:59 14:59 Intake Total 480 Output Total 520 Balance -520 480 Intake: Oral 480 Output: Urine 400 Uretheral (Stone) 100 Emesis 50 Output, Quantitative 70 Blood Loss Other: Voiding Method Indwelling Catheter Indwelling Catheter # Voids 1 # Bowel Movements 600 - Exam Extremities: Present: normal, edema Abdomen: Present: normal appearance, soft Incision: Present: normal, dry, intact Uterus: Present: normal, firm - Labs Labs: Abnormal Lab Results - Last 24 Hours (Table) 03/22/22 03/23/22 Range/Units 10:05 02:47 WBC 13.7 H (3.8-10.6) k/uL Neutrophils # 10.5 H 8.1 H (1.3-7.7) k/uL Assessment and Plan (1) Term Current Visit: Yes Status: Acute Code(s): Z34.90 - ENCNTR FOR SUPRVSN OF NORMAL , UNSP, UNSP TRIMESTER SNOMED Code(s): 42742150 (2) H/O section Current Visit: Yes Status: Acute Code(s): Z98.891 - HISTORY OF UTERINE SCAR FROM PREVIOUS SURGERY SNOMED Code(s): 398910190 Plan: patient is doing well postoperatively. We'll continue routine postoperative care and anticipate discharge home tomorrow.
[2022-03-24] MEDS: IBUPROFEN 600 MG TAB PO SCH ×2 (02:44→09:13)
[2022-03-24] MEDS: ACETAMINOPHEN TAB 500 MG TAB PO SCH ×2 (06:15→11:41)
[2022-03-24] MEDS: SENNOSIDES-DOCUSATE SODIUM 1 EACH TAB PO SCH (07:58)
[2022-03-24 08:20] VITALS: BP 132/82; PULSE 85; RESP 14; TEMP 98.4
--- NOTE | 2022-03-24 08:57 | P.DS ---
Providers Date of admission: 03/22/22 09:41 Expected date of discharge: 03/24/22 Attending physician: Kiesha Alfaro Primary care physician: Stated None - Discharge Diagnosis(es) (1) Term Current Visit: Yes Status: Acute (2) H/O section Current Visit: Yes Status: Acute Hospital Course: 32-year-old G3 now P2012 that presented to labor and delivery on 03/22 for scheduled repeat section at 39-0/7 weeks. Patient been receiving routine care which is been essentially uncomplicated. Patient is without complaints this morning. Patient does note good movement denies contractions vaginal bleeding or loss of fluid. On bloodwork this patient is a blood type of O+, rubella status immune, B surface antigen negative, HIV negative, RPR is nonreactive, group beta strep cultures are negative. Patient Condition at Discharge: Good Plan - Discharge Summary Discharge Rx Participant: No New Discharge Prescriptions: No Action Pantoprazole Sodium [Protonix] 40 mg PO DAILY Vit No.179/Iron/Folic [ Tablet] 1 tab PO DAILY Albuterol Inhaler [Ventolin Hfa Inhaler] 90 mcg INHALATION DAILY Aspirin 1 tab PO DAILY Discharge Medication List Pantoprazole Sodium [Protonix] 40 mg PO DAILY 12/26/20 [History] Albuterol Inhaler [Ventolin Hfa Inhaler] 90 mcg INHALATION DAILY 01/13/22 [History] Aspirin 1 tab PO DAILY 03/22/22 [History] Vit No.179/Iron/Folic [ Tablet] 1 tab PO DAILY 03/22/22 [History] Follow up Appointment(s)/Referral(s): Aditya Ingram MD [STAFF PHYSICIAN] - 2 Weeks Patient Instructions/Handouts: (DC), (GEN) Discharge Disposition: HOME SELF-CARE
== END 2022-03-24 15:28 | disposition home or self-care (01) | DRG 788 ==
LOC: 4FBP 09:41
PROVIDERS: ADMIT Obstetrics & Gynecology Obstetrics; ATTEND Obstetrics & Gynecology Obstetrics
PROC: 10D00Z1 Extraction of Products of Conception, Low, Open Approach (ICD-10-PCS; principal; 2022-03-22 12:00)
DX: O34.211 Maternal care for low transverse scar from previous cesarean delivery (principal); Z28.310 Unvaccinated for COVID-19; Z37.0 Single live birth; Z3A.39 39 weeks gestation of pregnancy; Z79.82 Long term (current) use of aspirin; Z79.899 Other long term (current) drug therapy; Z86.16 Personal history of COVID-19; Z95.2 Presence of prosthetic heart valve
CPT/HCPCS: 85025; 86850; 86900; 86901

== ENCOUNTER 2022-12-27 09:28 | Emergency (ER) | payer BC ==
[2022-12-27 09:59] VITALS: TEMP 97.8
[2022-12-27] MEDS ORDERED: SODIUM CHLORIDE 0.9% 2,000 ML IV STA (10:23)
--- NOTE | 2022-12-27 10:52 | ED ---
General Adult HPI - General Chief complaint: Nausea/Vomiting/Diarrhea Stated complaint: Diarrhea,Weakness Time Seen by Provider: 12/27/22 10:10 Source: patient Mode of arrival: ambulatory Limitations: no limitations - History of Present Illness Initial comments: 32-year-old female presents to the emergency department for chief complaint of diarrhea, vomiting x4 days. Patient states Sunday she started having loose stools associated with vomiting. She states that she has diffuse cramping abdominal pain. She states she has been having about 15 loose stools per day. She states her had a similar thing but this did not last nearly as long. Denies blood in stool or vomitus. Denies recent travel, antibiotic use. - Related Data Home Medications Medication Instructions Recorded Confirmed Pantoprazole Sodium [Protonix] 40 mg PO DAILY PRN 12/27/22 12/27/22 Sertraline [Zoloft] 50 mg PO DAILY 12/27/22 12/27/22 Allergies Allergy/AdvReac Type Severity Reaction Status Date / Time No Known Allergies Allergy Verified 12/27/22 12:39 Review of Systems ROS Statement: Those systems with pertinent positive or pertinent negative responses have been documented in the HPI. ROS Other: All systems not noted in ROS Statement are negative. Past Medical History Past Medical History: No Reported History Additional Past Medical History / Comment(s): Missed AB History of Any Multi-Drug Resistant Organisms: None Reported Past Surgical History: Cardiac Valve Replacement, Section Additional Past Surgical History / Comment(s): [place] teeth removed. Past Anesthesia/Blood Transfusion Reactions: No Reported Reaction Past Psychological History: Depression Smoking Status: Never smoker Past Alcohol Use History: Rare Past Drug Use History: None Reported - Past Family History Mother Family Medical History: Respiratory Disorder Additional Family Medical History / Comment(s): sarcoidosis Father Family Medical History: Cancer Additional Family Medical History / Comment(s): Skin General Exam Limitations: no limitations General appearance: alert, in no apparent distress Head exam: Present: atraumatic, normocephalic, normal inspection Eye exam: Present: normal appearance, PERRL, EOMI. Absent: scleral icterus, conjunctival injection, periorbital swelling ENT exam: Present: mucous membranes dry Neck exam: Present: normal inspection. Absent: tenderness, meningismus, lymphadenopathy Respiratory exam: Present: normal lung sounds bilaterally. Absent: respiratory distress, wheezes, rales, rhonchi, stridor Cardiovascular Exam: Present: regular rate, normal rhythm, normal heart sounds. Absent: systolic murmur, diastolic murmur, rubs, gallop, clicks GI/Abdominal exam: Present: soft, normal bowel sounds. Absent: distended, tenderness, guarding, rebound, rigid Extremities exam: Present: normal inspection, full ROM, normal capillary refill. Absent: tenderness, pedal edema, joint swelling, calf tenderness Back exam: Present: normal inspection Neurological exam: Present: alert, oriented X3 Psychiatric exam: Present: normal affect, normal mood Skin exam: Present: warm, dry, intact, normal color. Absent: rash Course Vital Signs 12/27/22 12/27/22 09:57 13:30 Temperature 97.8 F Pulse Rate 79 75 Respiratory 20 18 Rate Blood Pressure 125/88 101/64 O2 Sat by Pulse 99 99 Oximetry Medical Decision Making - Medical Decision Making Was pt. sent in by a medical professional or institution (, PA, [employer], urgent care, hospital, or halfway...) When possible be specific @ -No Did you speak to anyone other than the patient for history (EMS, parent, family, police, friend...)? What history was obtained from this source @ -No Did you review nursing and triage notes (agree or disagree)? Why? @ -I reviewed and agree with nursing and triage notes Were old charts reviewed (outside hosp., previous admission, EMS record, old EKG, old radiological studies, urgent care reports/EKG's, halfway records)? Report findings @ -No old charts were reviewed Differential Diagnosis (chest pain, altered mental status, abdominal pain women, abdominal pain men, vaginal bleeding, weakness, fever, dyspnea, syncope, headache, dizziness, GI bleed, back pain, seizure, CVA, palpatations, mental health, musculoskeletal)? @ -Gastroenteritis, C. diff, dehydration, this list is not all-inclusive EKG interpreted by me (3pts min.). @ -None X-rays interpreted by me (1pt min.). @ -None done CT interpreted by me (1pt min.). @ -None done U/S interpreted by me (1pt. min.). @ -None done What testing was considered but not performed or refused? (CT, X-rays, U/S, labs)? Why? @ -None What meds were considered but not given or refused? Why? @ -None Did you discuss the management of the patient with other professionals (professionals i.e. , PA, [employer], lab, RT, psych nurse, social worker psychiatric, insurance territory manager, teacher, peace officer, family caseworker)? Give summary @ -No Was smoking cessation discussed for >3mins.? @ -No Was critical care preformed (if so, how long)? @ -No Were there social determinants of health that impacted care today? How? (Homelessness, low income, unemployed, alcoholism, drug addiction, transportation, low edu. Level, literacy, decrease access to med. care, correction, rehab)? @ -No Was there de-escalation of care discussed even if they declined (Discuss DNR or withdrawal of care, Hospice)? DNR status @ -No What co-morbidities impacted this encounter? (DM, HTN, Smoking, COPD, CAD, Cancer, CVA, ARF, Chemo, Hep., AIDS, mental health diagnosis, sleep apnea, morbid obesity)? @ -None Was patient admitted / discharged? Hospital course, mention meds given and route, prescriptions, significant lab abnormalities, going to OR and other pertinent info. @ -Discharged. Patient presented to emergency department chief complaint of vomiting and diarrhea 4 days. she has sick contacts with similar symptoms. CBC shows WBC 8.2, hemoglobin 16.3, hematocrit 48.2, elevations likely due to dehydration; CMP shows sodium 136, potassium 3.7, chloride 97, AST 88, ALP 110; UA showed cloudy urine, trace protein, 2+ ketones likely due to dehydration. Patient was given 2 L of normal saline, advised to continue hydrating with electrolyte beverages such as Gatorade and liquids [employer] brat diet. Patient was agreeable with the plan and discharged in stable condition. Case discussed with my attending, Dr. Rand Undiagnosed new problem with uncertain prognosis? @ -No Drug Therapy requiring intensive monitoring for toxicity (Heparin, Nitro, Insulin, Cardizem)? @ -No Were any procedures done? @ -No Diagnosis/symptom? @ -Gastroenteritis Acute, or Chronic, or Acute on Chronic? @ -acute Uncomplicated (without systemic symptoms) or Complicated (systemic symptoms)? @ -uncomplicated Side effects of treatment? @ -No Exacerbation, Progression, or Severe Exacerbation? @ -No Poses a threat to life or bodily function? How? (Chest pain, USA, ME, pneumonia, PE, COPD, DKA, ARF, appy, cholecystitis, CVA, Diverticulitis, Homicidal, Suicidal, threat to staff... and all critical care pts) @ -No - Lab Data Result diagrams: 12/27/22 10:33 12/27/22 10:33 Lab Results 12/27/22 12/27/22 12/27/22 Range/Units 10:33 10:33 10:33 WBC 8.2 (3.8-10.6) k/uL RBC 5.69 H (3.80-5.40) m/uL Hgb 16.3 H (11.4-16.0) gm/dL Hct 48.2 H (34.0-46.0) % MCV 84.7 (80.0-100.0) fL MCH 28.7 (25.0-35.0) pg MCHC 33.9 (31.0-37.0) g/dL RDW 13.4 (11.5-15.5) % Plt Count 341 (150-450) k/uL MPV 8.0 Neutrophils % 72 % Lymphocytes % 16 % Monocytes % 9 % Eosinophils % 1 % Basophils % 0 % Neutrophils # 5.9 (1.3-7.7) k/uL Lymphocytes # 1.3 (1.0-4.8) k/uL Monocytes # 0.7 (0-1.0) k/uL Eosinophils # 0.1 (0-0.7) k/uL Basophils # 0.0 (0-0.2) k/uL Sodium 136 L (137-145) mmol/L Potassium 3.7 (3.5-5.1) mmol/L Chloride 97 L (98-107) mmol/L Carbon Dioxide 21 L (22-30) mmol/L Anion Gap 18 mmol/L BUN 15 (7-17) mg/dL Creatinine 0.96 (0.52-1.04) mg/dL Est GFR (CKD-EPI)AfAm 90 (>60 ml/min/1.73 sqM) Est GFR (CKD-EPI)NonAf 78 (>60 ml/min/1.73 sqM) Glucose 76 (74-99) mg/dL Plasma Lactic Acid Yuri (0.7-2.0) mmol/L Calcium 9.4 (8.4-10.2) mg/dL Total Bilirubin 1.0 (0.2-1.3) mg/dL AST 88 H (14-36) U/L ALT 110 H (4-34) U/L Alkaline Phosphatase 107 (38-126) U/L Total Protein 8.9 H (6.3-8.2) g/dL Albumin 5.0 (3.5-5.0) g/dL Amylase 55 (30-110) U/L Lipase 137 (23-300) U/L Urine Color Yellow Urine Appearance Cloudy H (Clear) Urine pH 6.5 (5.0-8.0) Ur Specific [place] 1.018 (1.001-1.035) Urine Protein Trace H (Negative) Urine Glucose (UA) Negative (Negative) Urine Ketones 2+ H (Negative) Urine Blood Trace H (Negative) Urine Nitrite Negative (Negative) Urine Bilirubin Negative (Negative) Urine Urobilinogen <2.0 (<2.0) mg/dL Ur Leukocyte Esterase Negative (Negative) Urine RBC 2 (0-5) /hpf Urine WBC 2 (0-5) /hpf Ur Squamous Epith Cells 14 H (0-4) /hpf Urine Bacteria Rare H (None) /hpf Urine Mucus Rare H (None) /hpf Urine HCG, Qual (Not Detectd) 12/27/22 12/27/22 Range/Units 10:33 10:33 WBC (3.8-10.6) k/uL RBC (3.80-5.40) m/uL Hgb (11.4-16.0) gm/dL Hct (34.0-46.0) % MCV (80.0-100.0) fL MCH (25.0-35.0) pg MCHC (31.0-37.0) g/dL RDW (11.5-15.5) % Plt Count (150-450) k/uL MPV Neutrophils % % Lymphocytes % % Monocytes % % Eosinophils % % Basophils % % Neutrophils # (1.3-7.7) k/uL Lymphocytes # (1.0-4.8) k/uL Monocytes # (0-1.0) k/uL Eosinophils # (0-0.7) k/uL Basophils # (0-0.2) k/uL Sodium (137-145) mmol/L Potassium (3.5-5.1) mmol/L Chloride (98-107) mmol/L Carbon Dioxide (22-30) mmol/L Anion Gap mmol/L BUN (7-17) mg/dL Creatinine (0.52-1.04) mg/dL Est GFR (CKD-EPI)AfAm (>60 ml/min/1.73 sqM) Est GFR (CKD-EPI)NonAf (>60 ml/min/1.73 sqM) Glucose (74-99) mg/dL Plasma Lactic Acid Yuri 1.0 (0.7-2.0) mmol/L Calcium (8.4-10.2) mg/dL Total Bilirubin (0.2-1.3) mg/dL AST (14-36) U/L ALT (4-34) U/L Alkaline Phosphatase (38-126) U/L Total Protein (6.3-8.2) g/dL Albumin (3.5-5.0) g/dL Amylase (30-110) U/L Lipase (23-300) U/L Urine Color Urine Appearance (Clear) Urine pH (5.0-8.0) Ur Specific [place] (1.001-1.035) Urine Protein (Negative) Urine Glucose (UA) (Negative) Urine Ketones (Negative) Urine Blood (Negative) Urine Nitrite (Negative) Urine Bilirubin (Negative) Urine Urobilinogen (<2.0) mg/dL Ur Leukocyte Esterase (Negative) Urine RBC (0-5) /hpf Urine WBC (0-5) /hpf Ur Squamous Epith Cells (0-4) /hpf Urine Bacteria (None) /hpf Urine Mucus (None) /hpf Urine HCG, Qual Not Detected (Not Detectd) Disposition Clinical Impression: Gastroenteritis Disposition: HOME SELF-CARE Condition: Stable Instructions (If sedation given, give patient instructions): Acute Nausea and Vomiting (ED) Additional Instructions: Follow up with your primary care provider. Return to the emergency department for new or worsening symptoms. Is patient prescribed a controlled substance at d/c from ED?: No Referrals: Neymar France MD [Primary Care Provider] - 1-2 days Time of Disposition: 12:43
[2022-12-27 10:59] LABS: Basophils % (A) 0 %; Eosinophils # (A) 0.1 k/uL (0-0.7); Eosinophils % (A) 1 %; HCT 48.2 % (34.0-46.0); HGB 16.3 gm/dL (11.4-16.0); Lymphocytes # (A) 1.3 k/uL (1.0-4.8); Lymphocytes % (A) 16 %; MCH 28.7 pg (25.0-35.0); MCHC 33.9 g/dL (31.0-37.0); MCV 84.7 fL (80.0-100.0); Monocytes # (A) 0.7 k/uL (0-1.0); Monocytes % (A) 9 %; Neutrophils # (A) 5.9 k/uL (1.3-7.7); Neutrophils % (A) 72 %; Platelet Count 341 k/uL (150-450); RBC 5.69 m/uL (3.80-5.40); RDW 13.4 % (11.5-15.5); WBC 8.2 k/uL (3.8-10.6)
[2022-12-27 11:01] LABS: ALT 110 U/L (4-34); AST 88 U/L (14-36); African American GFR (CKD) 90 (>60 ml/min/1.73 sqM); Alkaline Phosphatase 107 U/L (38-126); Amylase 55 U/L (30-110); Anion Gap 18 mmol/L; Blood Urea Nitrogen 15 mg/dL (7-17); Calcium 9.4 mg/dL (8.4-10.2); Carbon Dioxide 21 mmol/L (22-30); Chloride 97 mmol/L (98-107); Glucose 76 mg/dL (74-99); Lipase 137 U/L (23-300); Non-African American GFR(CKD) 78 (>60 ml/min/1.73 sqM); Potassium 3.7 mmol/L (3.5-5.1); Sodium 136 mmol/L (137-145); Total Protein 8.9 g/dL (6.3-8.2)
[2022-12-27 11:44] LABS: Appearance,Urine Cloudy (Clear); Bacteria,Urine Rare /hpf; Bilirubin,Urine Negative (Negative); Blood,Urine Trace (Negative); Color,Urine Yellow; Glucose,Urine (UA) Negative (Negative); Ketones,Urine 2+ (Negative); Leukocyte Esterase,Urine Negative (Negative); Mucus,Urine Rare /hpf; Nitrite,Urine Negative (Negative); PH, Urine 6.5 (5.0-8.0); Protein,Urine Trace (Negative); RBC,Urine 2 /hpf (0-5); Specific Gravity,Urine 1.018 (1.001-1.035); Squamous Epithelial Cell,Urine 14 /hpf (0-4); Urobilinogen,Urine <2.0 mg/dL (<2.0); WBC,Urine 2 /hpf (0-5)
[2022-12-27 13:32] VITALS: BP 101/64; PULSE 75; RESP 18
== END 2022-12-27 13:32 | disposition home or self-care (01) ==
LOC: EC 09:28
DX: K52.9 Noninfective gastroenteritis and colitis, unspecified (principal); F32.A Depression, unspecified; Z79.899 Other long term (current) drug therapy
CPT/HCPCS: 36415; 80053; 81001; 81025; 82150; 83605; 83690; 85025; 96360; 96361; 99283